=== PATIENT | male | born 1990 | race African-American/Black ===

== ENCOUNTER 2022-08-23 21:27 | Emergency (ER) | payer OTHER ==
[~2022-08-23] VITALS: Ht 175.3 cm; Wt 81.8 kg
[2022-08-23] MEDS ORDERED: LIDOCAINE 1% 10 ML VIAL ONE (21:43)
[2022-08-23] MEDS ORDERED: LIDOCAINE 1% 10 ML VIAL ID ONE (21:45)
[2022-08-23 22:07] LABS: BASOPHILS % (AUTO) 0.9 % (0.0-2.0); HEMOGLOBIN 13.2 g/dL (13.5-17.5); LYMPHOCYTES # (AUTO) 3.5 K/uL (1.0-4.8); LYMPHOCYTES % (AUTO) 39.7 % (22.0-44.0); MEAN CORPUSCULAR HEMOGLOBIN 28.7 pg (26.0-34.0); MEAN CORPUSCULAR HGB CONC 32.2 G/dL (31.0-37.0); MEAN CORPUSCULAR VOLUME 89 fL (80-100); MONOCYTES # (AUTO) 0.7 K/uL (0.1-1.0); NEUTROPHILS % (AUTO) 45.4 % (40.0-70.0); PLATELET COUNT (AUTO) 426 K/uL (150-450); RED CELL DISTRIBUTION WIDTH 14.9 % (11.5-14.5)
[2022-08-23] MEDS ORDERED: SODIUM CHLORIDE 0.9% 100 ML ONE (22:14)
[2022-08-23] MEDS ORDERED: IOHEXOL 350 MG/ML 100 ML VIAL ONE (22:14)
[2022-08-23 22:15] LABS: ANION GAP 16 mmol/L (8-16); CALCIUM, TOTAL 9.4 mg/dL (8.8-10.5); CARBON DIOXIDE 25 mmol/L (22-29); CHLORIDE 105 mmol/L (98-107); CREATININE 1.03 mg/dL (0.60-1.30); GLOMERULAR FILTR. RATE CALC > 60 mL/min (>60); GLUCOSE,RANDOM 68 mg/dL (70-110); POTASSIUM 3.5 mmol/L (3.5-5.1); SODIUM SERUM 146 mmol/L (136-145); UREA NITROGEN, BLOOD 13 mg/dL (7-18)
[2022-08-23 22:21] LABS: ALANINE AMINOTRANSFERASE 24 U/L (12-78); ALBUMIN 4.1 g/dL (3.4-5.0); ALKALINE PHOSPHATASE 80 U/L (46-116); ASPARTATE AMINOTRANSFERASE 19 U/L (15-37); BILIRUBIN,TOTAL 0.1 mg/dL (0.1-1.0); TOTAL PROTEIN, SERUM 7.6 g/dL (6.4-8.2)
[2022-08-23 23:01] VITALS: BP 147/76
[2022-08-23] MEDS ORDERED: PERTUSS(ACELL),DIPH,TET VAC/PF 0.5 ML SYRINGE IM. ONE (23:30)
[2022-08-23] MEDS ORDERED: AMOX1TAB16 PO (23:56)
[2022-08-24] MEDS ORDERED: AMOX TR/POT CLAV 875 MG/125 MG TABLET PO ONE
[2022-08-24] MEDS ORDERED: IBUP-1492 PO (01:19)
== END 2022-08-24 00:28 ==
LOC: EDBD 21:27 → EMS 21:27
DX: S31.010A Laceration without foreign body of lower back and pelvis without penetration into retroperitoneum, initial encounter (principal); J45.909 Unspecified asthma, uncomplicated; W26.8XXA Contact with other sharp object(s), not elsewhere classified, initial encounter; Y93.01 Activity, walking, marching and hiking; Y92.89 Other specified places as the place of occurrence of the external cause; Y99.8 Other external cause status
CPT/HCPCS: 99285; 71260; 71045; 80053; 85025; 36415; 12002; J3490; Q9967; J7050

== ENCOUNTER 2022-08-24 00:57 | Emergency (ER) | payer OTHER ==
[~2022-08-24] VITALS: Ht 172.7 cm; Wt 59.1 kg
[~2022-08-24 00:57] MED LIST: AMOX1TAB16 PO
[2022-08-24 01:06] VITALS: BP 131/78
[2022-08-24] MEDS ORDERED: ACETAMINOPHEN 500 MG TABLET PO ONE (01:15)
[2022-08-24] MEDS ORDERED: IBUP-1492 PO (01:19)
== END 2022-08-24 01:49 ==
LOC: EMS 00:57
DX: S20.409D Unspecified superficial injuries of unspecified back wall of thorax, subsequent encounter (principal); J45.909 Unspecified asthma, uncomplicated; X58.XXXD Exposure to other specified factors, subsequent encounter
CPT/HCPCS: 93005; 99283